=== PATIENT | female | born 1995 | race Caucasian/White ===

== ENCOUNTER 2016-04-02 19:48 | Emergency (ER) | payer OTHER ==
[~2016-04-02] VITALS: Ht 165.1 cm; Wt 77.2 kg
[2016-04-02 19:54] VITALS: TEMP 36.9; Ht 165.1 cm; Wt 77.2 kg
[2016-04-02] MEDS ORDERED: KETOROLAC TROMETHAMINE 30 MG/ML VIAL IV STA (20:09)
[2016-04-02] MEDS ORDERED: SODIUM CHLORIDE 0.9% 1000ML 1,000 ML IV STA (20:09)
[2016-04-02] MEDS ORDERED: ONDANSETRON INJ 2 MG/ML 2 ML VIAL IV STA (20:09)
[2016-04-02] MEDS ORDERED: BCPILLS PO (20:14)
[2016-04-02] MEDS ORDERED: OPTIRAY 320 IV PRN (20:15)
[2016-04-02 20:23] LABS: BASO % 0.2 %; BASO ABS # 0.01 K/uL (0-0.2); COMPLETE YES; EOS % 0.8 %; HEMATOCRIT 38.7 % (37-47); IG% 0.3 %; LYMPH % 24.3 %; LYMPH ABS # 1.48 K/uL (1.2-3.4); MEAN CELL VOLUME 85.1 fL (80-100); MEAN CORPUSCULAR HEMOGLOBIN 28.8 pg (25-34); MEAN CORPUSCULAR HGB CONC 33.9 g/dl (32-36); MEAN PLATELET VOLUME 9.2 fL (7.4-10.4); MONO % 7.2 %; NEUT % 67.2 %; PLATELET COUNT 220 K/uL (130-400); RED BLOOD COUNT 4.55 M/uL (4.2-5.4); WHITE BLOOD COUNT 6.09 K/uL (4.8-10.8)
[2016-04-02 20:28] LABS: URINE APPEARANCE CLOUDY (CLEAR); URINE BILIRUBIN NEG (NEG); URINE COLOR YELLOW; URINE EPITHELIAL CELL AUTO >30 /lpf (0-5); URINE NITRITE NEG (NEG); URINE PH 6.5 (4.5-7.5); URINE SPECIFIC GRAVITY 1.027 (1.000-1.030); UROBILINOGEN NEG (NEG); ZZUR CULT IF INDIC CLEAN CATCH YES
[2016-04-02 20:34] LABS: MANUAL MICROSCOPIC REQUIRED? NO; REVIEW REQ? YES
[2016-04-02 20:45] LABS: BUN/CREATININE RATIO 9.6 (10-20); CALCIUM 8.4 mg/dl (8.5-10.1); CREATININE 0.97 mg/dl (0.60-1.20); POTASSIUM 3.6 mmol/L (3.5-5.1)
--- NOTE | 2016-04-02 22:36 | DIAGNOSTIC IMAGING REPORT ---
ABDOMEN AND PELVIS CT WITH IV AND ORAL CONTRAST CT DOSE: 377.05 mGy.cm HISTORY: Pain periumbilical abd pain TECHNIQUE: Multiaxial CT images of the abdomen and pelvis were performed following the use of intravenous and oral contrast. COMPARISON STUDY: None. FINDINGS: Lung bases are clear. Liver spleen and pancreas are unremarkable. Gallbladder is negative for distention. Bowel pattern within the abdomen and pelvis is nonobstructive. Mild mesenteric marialuisa change. The appendix is normal. Bladder is midline. Uterus is anteflexed. No significant free fluid within the pelvic cul-de-sac. IMPRESSION: 1. Mild mesenteric adenitis. 2. Otherwise negative study. 3. Normal appendix. Electronically signed by: Rikki Hurtado M.D. 04/02/2016 10:35 PM Dictated Date/Time: 04/02/2016 10:33 PM
[2016-04-02] MEDS ORDERED: ONDA4TAB46 PO (22:56)
[2016-04-02 23:10] VITALS: BP 106/53; PULSE 79; O2SAT 97
--- NOTE | 2016-04-03 00:14 | EMERGENCY ROOM VISIT NOTE ---
History Report prepared by Roberto: Jagdish Ureña Under the Supervision of: Dr. Tony Hill D.O. First contact with patient: 19:57 Chief Complaint: ABDOMINAL PAIN Stated Complaint: STOMACH PAIN, NAUSEA,FEVER FATIGUE History of Present Illness The patient is a 20 year old female who presents to the Emergency Room with complaints of worsening abdominal pain that began at 1400 yesterday, 30 hours prior to arrival. Her pain is concentrated in her lower abdomen, and sometimes radiates into her right upper quadrant. The patient states that she went to Urgent Care this evening, who advised her to come to the Emergency Department for an appendicitis rule-out. She did have an episode of diarrhea yesterday at 1400 and feels the need to vomit, but has not to this point. The patient also noted experiencing fevers and chills yesterday. No recorded fevers. She has had no previous surgeries on her abdomen. 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 A total of 10 systems reviewed and were otherwise negative. Past Medical & Surgical Surgical Problems: (1) History of adenoidectomy Family History Diabetes mellitus Social History Smoking Status: Never Smoker Marital Status: single Housing Status: lives with roommate Occupation Status: [employer] Current/Historical Medications Scheduled Control Pills ( Control Pills), 1 TAB PO DAILY@1700 Scheduled PRN Ondansetron Hcl (Zofran), 4 MG PO TID PRN for Nausea Allergies Coded Allergies: No Known Allergies (Unverified , 04/02/16) Physical Exam Vital Signs Date Time Temp Pulse Resp B/P Pulse Ox O2 Delivery O2 Flow Rate FiO2 04/02/16 23:10 79 16 106/53 97 Room Air 04/02/16 21:39 92 16 114/73 99 Room Air 04/02/16 19:54 36.9 95 20 111/73 100 Room Air Physical Exam GENERAL: Laying in bed, disheveled, well nourished, no distress, non-toxic EYE EXAM: normal conjunctiva. OROPHARYNX: no exudate, no erythema, lips, buccal mucosa, and tongue normal and mucous membranes are moist NECK: supple, no nuchal rigidity, no adenopathy, non-tender LUNGS: Clear to auscultation. Normal chest wall mechanics HEART: no murmurs, S1 normal and S2 normal ABDOMEN: Mild diffuse lower abdominal tenderness. abdomen soft, normo-active bowel sounds, no masses, no rebound or guarding. BACK: Back is symmetrical on inspection and there is no deformity, no midline tenderness, no CVA tenderness. SKIN: no rashes and no bruising UPPER EXTREMITIES: upper extremities are grossly normal. LOWER EXTREMITIES: No pitting edema. NEURO EXAM: Normal sensorium, cranial nerves II-XII grossly intact, normal speech, no gross weakness of arms, no gross weakness of legs. Medical Decision & Procedures ER Provider Diagnostic Interpretation: Xray results per the radiologist and my interpretation. Other results have been interpreted by the radiologist and reviewed by me. ABDOMEN AND PELVIS CT WITH IV AND ORAL CONTRAST CT DOSE: 377.05 mGy.cm HISTORY: Pain periumbilical abd pain TECHNIQUE: Multiaxial CT images of the abdomen and pelvis were performed following the use of intravenous and oral contrast. COMPARISON STUDY: None. FINDINGS: Lung bases are clear. Liver spleen and pancreas are unremarkable. Gallbladder is negative for distention. Bowel pattern within the abdomen and pelvis is nonobstructive. Mild mesenteric marialuisa change. The appendix is normal. Bladder is midline. Uterus is anteflexed. No significant free fluid within the pelvic cul-de-sac. IMPRESSION: 1. Mild mesenteric adenitis. 2. Otherwise negative study. 3. Normal appendix. Electronically signed by: Rikki Hurtado M.D. 04/02/2016 10:35 PM Dictated Date/Time: 04/02/2016 10:33 PM Laboratory Results 04/02/16 20:09 Red Blood Count 4.55, Mean Corpuscular Volume 85.1, Mean Corpuscular Hemoglobin 28.8, Mean Corpuscular Hemoglobin Concent 33.9, Mean Platelet Volume 9.2, Neutrophils (%) (Auto) 67.2, Lymphocytes (%) (Auto) 24.3, Monocytes (%) (Auto) 7.2, Eosinophils (%) (Auto) 0.8, Basophils (%) (Auto) 0.2, Neutrophils # (Auto) 4.09, Lymphocytes # (Auto) 1.48, Monocytes # (Auto) 0.44, Eosinophils # (Auto) 0.05, Basophils # (Auto) 0.01 04/02/16 20:09 Test 04/02/16 20:04 04/02/16 20:09 Urine Color YELLOW Urine Appearance CLOUDY (CLEAR) Urine pH 6.5 (4.5-7.5) Urine Specific [place] 1.027 (1.000-1.030) Urine Protein NEG (NEG) Urine Glucose (UA) NEG (NEG) Urine Ketones TRACE (NEG) Urine Occult Blood 2+ (NEG) Urine Nitrite NEG (NEG) Urine Bilirubin NEG (NEG) Urine Urobilinogen NEG (NEG) Urine Leukocyte Esterase MODERATE (NEG) Urine WBC (Auto) >30 /hpf (0-5) Urine RBC (Auto) 5-10 /hpf (0-4) Urine Hyaline Casts (Auto) 1-5 /lpf (0-5) Urine Epithelial Cells (Auto) >30 /lpf (0-5) Urine Bacteria (Auto) 1+ (NEG) Urine Pathogenic Casts /lpf (0) Urine Test NEG (NEG) White Blood Count 6.09 K/uL (4.8-10.8) Red Blood Count 4.55 M/uL (4.2-5.4) Hemoglobin 13.1 g/dL (12.0-16.0) Hematocrit 38.7 % (37-47) Mean Corpuscular Volume 85.1 fL (80-100) Mean Corpuscular Hemoglobin 28.8 pg (25-34) Mean Corpuscular Hemoglobin Concent 33.9 g/dl (32-36) Platelet Count 220 K/uL (130-400) Mean Platelet Volume 9.2 fL (7.4-10.4) Neutrophils (%) (Auto) 67.2 % Lymphocytes (%) (Auto) 24.3 % Monocytes (%) (Auto) 7.2 % Eosinophils (%) (Auto) 0.8 % Basophils (%) (Auto) 0.2 % Neutrophils # (Auto) 4.09 K/uL (1.4-6.5) Lymphocytes # (Auto) 1.48 K/uL (1.2-3.4) Monocytes # (Auto) 0.44 K/uL (0.11-0.59) Eosinophils # (Auto) 0.05 K/uL (0-0.5) Basophils # (Auto) 0.01 K/uL (0-0.2) RDW Standard Deviation 40.2 fL (36.4-46.3) RDW Coefficient of Variation 13.0 % (11.5-14.5) Immature Granulocyte % (Auto) 0.3 % Immature Granulocyte # (Auto) 0.02 K/uL (0.00-0.02) Anion Gap 7.0 mmol/L (3-11) Est Creatinine Clear Calc Drug Dose 95.8 ml/min Estimated GFR () 98.1 Estimated GFR (Non- 84.7 BUN/Creatinine Ratio 9.6 (10-20) Calcium Level 8.4 mg/dl (8.5-10.1) Total Bilirubin 0.2 mg/dl (0.2-1) Direct Bilirubin 0.1 mg/dl (0-0.2) Aspartate Amino Transf (AST/SGOT) 17 U/L (15-37) Alanine Aminotransferase (ALT/SGPT) 20 U/L (12-78) Alkaline Phosphatase 49 U/L (45-117) Total Protein 7.1 gm/dl (6.4-8.2) Albumin 3.5 gm/dl (3.4-5.0) Lipase 158 U/L (73-393) Laboratory results per my review. Medications Administered Medications (Trade) Dose Ordered Sig/Maritza Route Start Time Stop Time Status Last Admin Dose Admin Sodium Chloride (Nss 1000ml) 1,000 ml @ 999 mls/hr Q1H1M STAT IV 04/02/16 20:09 04/02/16 21:09 DC 04/02/16 20:00 999 MLS/HR Ondansetron HCl (Zofran Inj) 4 mg NOW STAT IV 04/02/16 20:09 04/02/16 20:11 DC 04/02/16 20:25 4 MG Ketorolac Tromethamine (Toradol Inj) 30 mg NOW STAT IV 04/02/16 20:09 04/02/16 20:11 DC 04/02/16 20:25 30 MG ED Course ED COURSE: Vital signs were reviewed and showed Normal Vitals The patients medical record was reviewed The above diagnostic studies were performed and reviewed. ED treatments and interventions as stated above. 1958: The patient was evaluated in room C9. A complete history and physical examination was performed. 2008: Ordered Toradol 30 mg IV, Zofran 4 mg IV, Sodium Chloride 1000 mL @ 999 mL /hr IV. 2042: Upon reevaluation, the patient is resting comfortably.I discussed my findings with the patient and she understands and agrees with the treatment plan. Based on the patients age, coexisting illnesses, exam and lab findings the decision to treat as an outpatient was made. The patient remained stable while under my care. The patient appeared well at the time of discharge. Medical Decision Differential diagnoses includes but is not limited to gastritis, peptic ulcer disease, GERD, gallbladder disease, pancreatitis, small bowel obstruction, acute coronary syndrome, pericarditis, ischemic bowel, irritable bowel disease, irritable bowel syndrome, appendicitis, diverticulitis, malignancy, hernia, urinary tract infection, torsion, /ectopic (if female), perforation, trauma, infectious. Patient is a 20-year-old female who presents the ER for lower abdominal pain referred in by hernandez murphy. Vitals are stable. She does have vomiting and diarrhea. Labs showed no significant leukocytosis or anemia. BMP along with LFTs, bilirubin and lipase is unremarkable. UA was contaminated with multiple epithelial cells. Urine was negative. CT of abdomen and pelvis shows mesenteric adenitis. This her symptoms this does appear to be a gastroenteritis. She was given fluids along with Zofran. She is discharged follow-up with her primary care doctor. Discussed with Pt concerning signs and symptoms to watch out for. Pt was instructed to follow up with their PCP and discussed with the patient their option to return to the ED at anytime for persistent or worsening symptoms. The appropriate anticipatory guidance and out- patient management, including indications for return to the emergency department , were explained at length to the patient and understood. Impression Primary Impression: Mesenteric adenitis Additional Impression: Gastroenteritis Scribe Attestation The scribe's documentation has been prepared under my direction and personally reviewed by me in its entirety. I confirm that the note above accurately reflects all work, treatment, procedures, and medical decision making performed by me. Departure Information Dispostion Home / Self-Care Prescriptions Ondansetron Hcl (ZOFRAN) 4 Mg Tab 4 MG PO TID Y for Nausea, #30 TAB Prov: Tony Hill, 04/02/16 Forms HOME CARE DOCUMENTATION FORM, IMPORTANT VISIT INFORMATION Patient Instructions My [facility] Additional Instructions Please follow up with your primary care doctor with in the next 24 hours. Any worsening of your symptoms, please return to the ED immediately. This includes fevers greater than 100.4, worsening abdominal pain, persistent vomiting, passing out, or any other concerning signs or symptoms from your standpoint. Please take Tylenol as needed for pain. Problem Qualifiers
== END 2016-04-02 23:10 | disposition home or self-care (01) ==
LOC: C.EDB 19:50 → C.EDC 23:10
DX: I88.0 Nonspecific mesenteric lymphadenitis (principal); K52.9 Noninfective gastroenteritis and colitis, unspecified; Z90.89 Acquired absence of other organs; Z83.3 Family history of diabetes mellitus